=== PATIENT | male | born 1975 | race Two or more races ===

== ENCOUNTER 2025-06-03 15:11 | Emergency (ER) | payer BC ==
[~2025-06-03] VITALS: Ht 165.1 cm; Wt 70.0 kg
[2025-06-03 15:12] VITALS: TEMP 98
--- NOTE | 2025-06-03 16:53 | ED.PDOC ---
Musculoskeletal HPI Comments This is a 50 year old male presenting to the ED with chief complaint of left foot injury. Patient reports that while cutting a tree yesterday, a branch had fallen onto his left foot, causing pain and an open wound to the bottom of his left foot. Patient relays that his bleeding has since been controlled but he is continuing to have pain. Patient denies any numbness, weakness, tingling, or further injury. Chief Complaint: Lower Extremity Time Seen by MD: 16:53 Reviewed Notes: Nurses Notes, Medications, Allergies Information Source: Patient, Spouse Mode of Arrival: Ambulatory Location: Left Extremity Location: Foot Timing: Hours Prehospital treatment: None Severity: Moderate Able to Move Extremity: Yes Bear Weight: No Pain: Moderate Mechanism: Blunt Trauma Circumstances: Work Related Onset of Symptoms: After Trauma Symptoms: Swelling, Pain DVT Risk Factors: NONE Last Tetanus: UTD Past Medical History PAST MEDICAL HISTORY: Denies Surgical History: Denies all surgeries Family History Family History: Reviewed,noncontributory to illness Social History Smoker: Non-Smoker Alcohol: Denies ETOH Use Drugs: Denies Drug Use Lives In: Home Constitutional: denies: chills, diaphoresis, fatigue, fever, malaise, sweats, weakness, others EENTM: denies: blurred vision, double vision, ear bleeding, ear discharge, ear drainage, ear pain, ear ringing, eye pain, eye redness, hearing loss, mouth pain, mouth swelling, nasal discharge, nose bleeding, nose congestion, nose pain, photophobia, tearing, throat pain, throat swelling, voice changes, others Respiratory: denies: cough, hemoptysis, orthopnea, SOB at rest, shortness of breath, SOB with excertion, stridor, wheezing, others Cardiovascular: denies: chest pain, dizzy spells, diaphoresis, Dyspnea on exertion, edema, irregular heart beat, left arm pain, lightheadedness, palpitations, PND, syncope, others Gastrointestinal: denies: abdomen distended, abdominal pain, blood streaked bowels, constipated, diarrhea, dysphagia, difficulty swallowing, hematemesis, melena, nausea, poor appetite, poor fluid intake, rectal bleeding, rectal pain, vomiting, others Genitourinary: denies: burning, dysuria, flank pain, frequency, hematuria, incontinence, penile discharge, penile sore, pain, testicle pain, testicle swelling, urgency, others Neurological: denies: dizziness, fainting, headache, left sided numbness, left sided weakness, numbness, paresthesia, pre-existing deficit, right sided numbness, right sided weakness, seizure, speech problems, tingling, tremors, weakness, others Musculoskeletal: reports: others (Lt foot pain); denies: back pain, gout, joint pain, joint swelling, muscle pain, muscle stiffness, neck pain Integumetry: reports: wounds (Left foot); denies: bruises, change in color, change in hair/nails, dryness, laceration, lesions, lumps, rash, others Allergic/Immunocompromised: denies: Difficulty Healing, Frequent Infections, Hives, Itching, others Hematologic/Lymphatic: denies: anemia, blood clots, easy bleeding, easy bruising, swollen glands, others Endocrine: denies: excessive hunger, excessive sweating, excessive thirst, excessive urination, flushing, intolerance to cold, intolerance to heat, unexplained weight gain, unexplained weight loss, others Psychiatric: denies: anxiety, bipolar disorder, depression, hopeless, panic disorder, schizophrenia, sleepless, suicidal, others All Other Systems: Reviewed and Negative Physical Exam General Appearance: No Apparent Distress, Normal HEENT: Normal ENT Inspection, Pharynx Normal, TMs Normal Neck: Full Range of Motion, Non-Tender, Normal, Normal Inspection Respiratory: Chest Non-Tender, Lungs Clear, No Accessory Muscle Use, No Respiratory Distress, Normal Breath Sounds Cardiovascular: No Edema, No JVD, No Murmur, No Gallop, Normal Peripheral Pulses, Regular Rate/Rhythm Breast Exam: Deferred Gastrointestinal: No Organomegaly, Non Tender, No Pulsatile Mass, Normal Bowel Sounds, Soft Genitalia: Deferred Pelvic: Deferred Rectal: Deferred Extremities: No calf tenderness, Normal capillary refill, Normal inspection, Normal range of motion, Non-tender, No pedal edema Musculoskeletal : Location: Left Extremity Location: Foot Apperance: Tenderness (With superficial laceration to pad of left 5th metatarsal.) Neurologic: Alert, 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 Was a procedure done?: No Differential Diagnosis EXT Differential Diagnosis: Fracture, Sprain, Contusion, Strain Other Differential Diagnosis Superficial laceration X-Ray, Labs, Meds, VS Vital Signs Date Time Temp Pulse Resp B/P (MAP) Pulse Ox O2 Delivery O2 Flow Rate FiO2 06/03/25 18:14 90 18 129/78 (95) 98 06/03/25 15:12 98.0 75 18 176/98 96 98.0 [place] [id number] Ph: [phone] DIAGNOSTIC IMAGING Diagnostic Imaging Report : [id number] Signed PATIENT: MARITO STEPHENSON ACCT: [id number] UNIT: [id number] : 1975 LOC: ER ROOM / BED: / AGE / SEX: 50 / M ADM STATUS: REG ER SERVICE 163 ORDERING PHYSICIAN: PAULETTE VAUGHN MD PROCEDURE(s): LFOOT - L FOOT 3 VIEW XRAY REASON: tree fell on foot ORDER NUMBER(s): [id number], ACCESSION NUMBER(s): [id number] EXAM: XY L FOOT 3 VIEW XRAY INDICATION: tree fell on foot TECHNIQUE: 3 views of the left foot COMPARISON: None FINDINGS/IMPRESSION: Fracture of the distal phalanx of the 5th digit. Small plantar calcaneal spur. ATED BY: VIGNESH PURCELL MD DICTATED DATE/TIME: 06/03/251709 SIGNED BY: VIGNESH PURCELL MD SIGNED DATE/TIME: 06/03/251709 CC: Time of 1ST Reevaluation: 17:51 Reevaluation 1ST: Improved Patient Education/Counseling: Diagnosis, Treatment Family Education/Counseling: Diagnosis, Treatment Departure 1 Departure Time of Disposition: 18:27 (Patient with a small laceration very superficial to the foot as well as a fracture. We will discharge patient home with a hard- soled shoe and outpatient follow up) Impression: Primary Impression: Toe fracture, left Additional Impression: Laceration Disposition: 01 HOME / SELF CARE / HOMELESS Condition: Stable Referrals: SRI CLINE MD Additional Instructions: You have a fracture of your small toe. You were placed in a hard-soled shoe. You should keep your foot clean and dry You were referred to orthopedics please call for an appointment For pain you can take the followinam: Ibuprofen 400mg with food Noon: Acetaminophen 1000mg 4pm: Ibuprofen 400mg with food 8pm: Acetaminophen 1000mg You should follow up with your regular doctor within one week to ensure you are doing better. If your symptoms worsen or you have any other concerns then please return to the ER. Discharged With: Self Critical Care Note Critical Care Time?: No Stability Stability form required: No Heart Score Heart Score: Heart Score Response (Comments) Value History N/A 0 EKG N/A 0 Age N/A 0 Risk Factors N/A 0 Troponin N/A 0 Total 0 I personally scribed for PAULETTE VAUGHN MD ([email or web address]) on 06/03/25 at 16:53. Electronically submitted by Francisco Javier Iqbal ([email or web address]). I personally scribed for PAULETTE VAUGHN MD ([email or web address]) on 06/03/25 at 17:14. Electronically submitted by Francisco Javier Iqbal ([email or web address]). PAULETTE VAUGHN MD Jun 03, 2025 16:53
--- NOTE | 2025-06-03 17:12 | DVH ---
EXAM: XY L FOOT 3 VIEW XRAY INDICATION: tree fell on foot TECHNIQUE: 3 views of the left foot COMPARISON: None FINDINGS/IMPRESSION: Fracture of the distal phalanx of the 5th digit. Small plantar calcaneal spur.
[2025-06-03 18:14] VITALS: BP 129/78
[2025-06-03 18:15] VITALS: PULSE 90; RESP 18; O2SAT 98
== END 2025-06-03 19:22 | disposition home or self-care (01) ==
LOC: ER 15:11
DX: S92.912A Unspecified fracture of left toe(s), initial encounter for closed fracture (principal); X58.XXXA Exposure to other specified factors, initial encounter; Y93.89 Activity, other specified; Y92.89 Other specified places as the place of occurrence of the external cause; Y99.8 Other external cause status
CPT/HCPCS: 73630